=== PATIENT | male | born 1985 | race African-American/Black ===

== ENCOUNTER 2025-06-29 00:17 | Emergency (ER) | payer OTHER ==
[~2025-06-29] VITALS: Ht 170.2 cm; Wt 130.3 kg
[2025-06-29 00:47] VITALS: TEMP 36.7; O2SAT 98
[2025-06-29] MEDS ORDERED: IBUP-1455 MT (03:40)
[2025-06-29] MEDS ORDERED: LIDO-53 TP (03:40)
[2025-06-29] MEDS ORDERED: CYCL10TA21 MT (03:40)
[2025-06-29] MEDS: IBUPROFEN 600MG TABLET PO ONE (04:15)
[2025-06-29] MEDS: LIDOCAINE 5% PATCH TOP SCH (04:15)
[2025-06-29 04:45] VITALS: BP 116/66; PULSE 62; RESP 18; O2SAT 99
== END 2025-06-29 05:00 | disposition home or self-care (01) ==
LOC: ER 00:44
DX: M25.561 Pain in right knee (principal); M25.532 Pain in left wrist; M54.2 Cervicalgia; V43.52XA Car driver injured in collision with other type car in traffic accident, initial encounter; Y93.89 Activity, other specified; Y92.410 Unspecified street and highway as the place of occurrence of the external cause; Y99.8 Other external cause status
CPT/HCPCS: 29260; 73110; 73562; 99284